=== PATIENT | female | born 1945 | race Caucasian/White ===

== ENCOUNTER → 2017-06-13 12:23 | Outpatient (CLI) | payer MEDICARE, SELFPAY ==
--- NOTE | 2017-06-13 12:26 | HPBI_ITS ---
MAMMOGRAPHY - BILATERAL SCREENING REASON FOR EXAM: Female, 71 years old. Routine annual screening examination. PERTINENT HISTORY: Non-contributory. Remote left stereotactic breast biopsy. TECHNIQUE: Digital bilateral breast lloyd (3D mammographic acquisition) in the CC and MLO projections. 2-D mediolateral oblique (MLO) and craniocaudad (CC) views of both breasts were obtained. CAD: Full Field Digital Mammography with Computer Added Detection was performed. COMPARISON: Comparison is made with prior study dated April 26, 2016 and April 07, 2015. FINDINGS: Breast Composition: There are scattered areas of fibroglandular density. There are no dominant masses or suspicious calcifications. 3 tissue markers are seen in the upper-outer aspect of the left breast. No other significant abnormalities are identified. There has been no significant change since the prior study. HPBI/SCREENING MAMM (CAD), BILAT IMPRESSION: Stable bilateral screening mammogram. Yearly follow-up mammogram recommended. (A) ASSESSMENT CATEGORY: BIRADS Category 2: Benign. A letter regarding these results will be sent to the patient by the facility within 30 days. Approximately 10% of breast cancers are not detected by mammography. A normal mammogram should not delay biopsy of a clinically suspicious abnormality. [id number] Electronically Signed: Kit Jones MD at 14:46 EDT Tel [phone], Service support ,
== END ==
PROVIDERS: Family Provider Internal Medicine; PCP Internal Medicine; Visit Provider Obstetrics & Gynecology
DX: Z12.31 Encounter for screening mammogram for malignant neoplasm of breast (principal)
CPT/HCPCS: 77063; 77067

== ENCOUNTER → 2018-06-20 08:13 | Outpatient (CLI) | payer MEDICARE, SELFPAY ==
--- NOTE | 2018-06-20 08:17 | US_ITS ---
STUDY: ABDOMINAL ULTRASOUND - RIGHT UPPER QUADRANT REASON FOR VISIT: Female, 72 years old. Right upper quadrant/epigastric pain. TECHNIQUE: Ultrasound evaluation of the right upper quadrant was performed with real-time and static gonzales-scale imaging. TECHNICAL QUALITY: Adequate. COMPARISON: None. FINDINGS: Liver: The liver measures 15.2 cm. There is normal echogenicity of the liver. The bile ducts are within normal limits. There is hepatic color flow. The direction of portal flow is hepatopetal. There is no demonstrated mass lesion. Gallbladder: Normal distended gallbladder. The gallbladder wall measures 3.2 mm. There is a negative sonographic Alaniz's sign. There is no pericholecystic fluid. There are multiple echogenic structures within the gallbladder, consistent with multiple gallstones. Common Bile Duct (C.B.D.): The common bile duct measures 2.7 mm. Pancreas: Normal size of the visualized head, body and tail of the pancreas. There is normal echogenicity of the pancreas. There is no demonstrated pancreatic mass or cyst. Right Kidney: Normal size of the right kidney. The right kidney measures 10.6 x 5 x 4.2 cm. Normal renal cortex. The right cortex measures 1.4 cm. A well-defined 1.6 x 1.6 x 1.5 cm anechoic cyst is seen at the upper pole. There is no right hydronephrosis. US/Abdomen Limited IMPRESSION: 1. Numerous gallstones. No sonographic sign of acute cholecystitis or bile duct obstruction. 2. 1.6 cm cortical cyst in the upper pole of the right kidney. No right hydronephrosis. 3. Unremarkable visualized liver and pancreas. Electronically Signed: Desmond Bearden MD at 15:44 EDT , Service support ,
== END ==
PROVIDERS: Family Provider Internal Medicine; PCP Internal Medicine; Referring Provider Internal Medicine; Visit Provider Internal Medicine
DX: R10.13 Epigastric pain (principal)
CPT/HCPCS: 76705

== ENCOUNTER → 2018-06-29 09:52 | Outpatient (CLI) | payer MEDICARE, SELFPAY ==
[2018-06-27 08:48] VITALS: BMI 26.2
--- NOTE | 2018-06-29 09:54 | BI_ITS ---
MAMMOGRAPHY - BILATERAL SCREENING REASON FOR EXAM: Female, 72 years old. Routine annual screening examination. PERTINENT HISTORY: Non-contributory. Prior left stereotactic breast biopsies. TECHNIQUE: Digital bilateral breast lloyd (3D mammographic acquisition) in the CC and MLO projections. 2-D mediolateral oblique (MLO) and craniocaudad (CC) views of both breasts were obtained. CAD: Full Field Digital Mammography with Computer Added Detection was performed. COMPARISON: Comparison is made with prior study dated June 13, 2017 and April 26, 2016. FINDINGS: Breast Composition: There are scattered areas of fibroglandular density. There are no dominant masses or suspicious calcifications. Once again, 3 tissue markers are seen in the upper outer aspect of the left breast and compared with prior biopsies. These are unchanged. Stable small benign-appearing bilateral axillary lymph nodes. No other significant abnormalities are identified. There has been no significant change since the prior study. BI/SCREENING MAMM (CAD), BILAT IMPRESSION: Stable bilateral screening mammogram. Yearly follow-up mammogram recommended. (A) ASSESSMENT CATEGORY: BIRADS Category 2: Benign. A letter regarding these results will be sent to the patient by the facility within 30 days. Approximately 10% of breast cancers are not detected by mammography. A normal mammogram should not delay biopsy of a clinically suspicious abnormality. [id number] Electronically Signed: Kit Jones, at 11:38 EDT , Service support ,
== END ==
PROVIDERS: Family Provider Internal Medicine; PCP Internal Medicine; Referring Provider Obstetrics & Gynecology; Visit Provider Obstetrics & Gynecology
DX: Z12.31 Encounter for screening mammogram for malignant neoplasm of breast (principal)
CPT/HCPCS: 77063; 77067

== ENCOUNTER 2020-02-14 05:23 | Day surgery (SDC) | payer MEDICARE, SELFPAY ==
--- NOTE | 2020-02-13 10:25 | EKG12_ITS ---
Test Reason : PRE OP Blood Pressure : / mmHG Vent. Rate : 067 BPM Atrial Rate : 067 BPM P-R Int : 182 ms QRS Dur : 078 ms QT Int : 352 ms P-R-T Axes : 073 067 063 degrees QTc Int : 371 ms Normal sinus rhythm with sinus arrhythmia Normal ECG Confirmed by SHAHANA BARDALES, CARLOS ([id number]), newspaper photo editor CURLY SKY ([id number]) on 02/14/2020 12:53:19 PM Referred By: Jaylan Copeland Confirmed By:CARLOS HARKINS MD
[2020-02-14 05:48] VITALS: BP 126/74; PULSE 70; RESP 14; TEMP 36.6; O2SAT 100; BMI 26.3
--- NOTE | 2020-02-14 06:00 | HP_ITS ---
Intake Vital Signs 01/31/20 Height 5 ft 01/31/20 Weight: 33 lb 4 oz 01/31/20 BMI 6.5 01/31/20 BP 133/4 H 01/31/20 Blood Pressure Location Rt brachial 01/31/20 Position Sitting 01/31/20 Respiration 20 H 01/31/20 Pulse 86 01/31/20 Pulse Source NIBP 01/31/20 Temp 98.0 F 01/31/20 Temp Source Temporal 01/31/20 Pulse Oximetry (%) 97 01/31/20 Oxygen Delivery Method room air Intake Visit Reasons: Discuss Gall Bladder Surgery Chief Complaint: discuss ivelisse Tile Edger Required: No Is patient in pain?: No Allergies No Known Allergies Allergy (Verified 01/31/20 14:16) Medications Calcium Carbonate/Vitamin D3 [Calcium 500 + D Tablet] 1 ea PO DAILY 01/02/14 [History Confirmed 01/31/20] Multivitamins,Therapeutic [Multivitamin] 1 tab PO DAILY 01/02/14 [History Confirmed 01/31/20] Pyridoxine HCl [Vitamin B6] 25 mg PO DAILY 01/02/14 [History Confirmed 01/31/20] fexofenadine 180 mg tablet 180 mg PO DAILY 06/27/18 [History Confirmed 01/31/20] lansoprazole 30 mg capsule,delayed release ea PO 01/31/20 [History Confirmed 01/31/20] mometasone 50 mcg/actuation nasal spray g INTRANASAL 01/31/20 [History Confirmed 01/31/20] Is last menstrual period known: No Post menopausal: Yes Patient : No PFSH Medical History Cholelithiasis (Acute) GERD (gastroesophageal reflux disease) (Acute) Surgical History History of dilatation and curettage (Acute) Family History Mother Heart disease Brother High cholesterol Social History (Updated 02/01/20 @ 10:[address] Jaylan Copeland MD) Smoking Status: Never smoker alcohol intake: current alcohol intake frequency: a few times a month substance use type: does not use HPI HPI Surgical H&P: Yes HPI: CHRIS DE LEON, is a 74 F who presents to the office today for Evaluation of cholelithiasis. Patient has had a gallbladder ultrasound completed at [facility] on 06/20/2018. The impression showed that there were numerous gallstones with no sonographic sign of acute cholecystitis or bile duct obstruction. Her common bile duct was 2.7 mm in size. Over the last 4 years off and on particularly when she has been eating heavier meals she has noticed some discomfort in the epigastric area that goes into her back. She cannot recall ever having an acute attack which required hospitalization but there have been numerous times during the holidays when she has had increased pressure and increased back pain. She is not experiencing any nausea or vomiting. She has had no change in her bowel or bladder habits. The patient is concerned that she could develop pancreatitis given the numerous gallstones that are located within her gallbladder. With been well over a year since I last saw her. She has noticed that her symptoms are starting to increase. She is delayed treatment secondary to the Kovic crisis but now feels that something needs to be done. ROS General General: No weight change, appetite, fatigue, colon cancer, breast cancer or weakness HEENT HEENT: No difficulty swallowing, eye injury, eye surgery, swollen glands or hoarseness Endo Endocrine: No thyroid disease, diabetes mellitus, thyroid cancer, Hair loss, heat intolerance or cold intolerance Skin Skin: No rash or changing moles Breast Breast: No left breast lump, right breast lump, nipple discharge, breast pain, abnormal mammogram, abnormal US or breast enlargement Musc Musculoskeletal: No back problems, arthritis, rheumatoid arthritis, gout or joint pain Cardio Cardiovascular: No murmur, pacemaker, heart disease, atrial fibrillation, high blood pressure, heart attack, heart stent, palpitations, shortness of breat with exertion or chest pain Psych Psychiatric: No depression, anxiety or hearing voices Resp Respiratory: No shortness of breath, No sleep apnea, No cough, No COPD, No asthma, No emphysema, No wheezing Gastro Gastrointestinal: Yes abdominal pain, No nausea or vomiting, No diarrhea, No constipation, No blood in stool, No acid reflux, Yes hemorrhoids, No ulcers, Yes gallbladder problem, No black,tarry stools Brayan Hematologic: No blood thinners, No blood disorders, No bleeding, No anemia, No blood clots Neuro Neurologic: No system reviewed and no additional complaints, except as docu, No as per HPI, No abnormal walking, No abnormal hearing, No abnormal movements, No abnormal speech, No behavioral changes, No burning sensations, No confusion, No seizure-like activity, No unsteadiness, No dizziness, No localized weakness, No frequent falls, No headache(s), No lack of coordination, No loss of vision, No memory loss, No numbness, No other visual disturbances, No radiating pain, No restless legs, No sensory deficit, No fainting, No tingling, No tremor(s), No weakness, No other Exam Const General: no acute distress, well developed, well hydrated Orientation: oriented to person, oriented to place, oriented to time [facility] Head: normocephalic, atraumatic Ears: external ears normal Mouth: moist mucous membranes Eyes Sclera: sclerae normal Pupils: normal by confrontation Neck Neck: no lymphadenopathy noted Neck mass: No Thyroid: thyroid normal, symmetrical Chest Chest palpation & inspection: normal inspection of the chest Breast Palpation: No nipple discharge Resp Effort & Inspection: normal respiratory effort Auscultation: clear to auscultation bilaterally Percussion: percussion normal Cardio Rate: regular rate Rhythm: regular rhythm Heart Sounds: no murmurs GI Palpation: soft, no hepatosplenomegaly, no masses, tender Auscultation: normal bowel sounds Rectal Exam: other Other: Rectal exam deferred. Extrem General: normal to inspection, no clubbing, cyanosis or edema Assessment & Plan Problems 1. Calculus of gallbladder with chronic cholecystitis without obstruction K80.10 2. Epigastric abdominal pain R10.13 Plan My plan is to perform a Robot assisted laparoscopic cholecystectomy with intraoperative cholangiogram. The planned surgical procedure was discussed extensively with the patient. The risks, benefits, anticipated outcomes and possible complication were mentioned. My staff has also explained the procedure in understandable terms and the patient was given the option to take printed material concerning the planned procedure. The patient had the opportunity to ask questions concerning the planned procedure. The patient freely consents to the planned procedure. Coding Level of Care Code Off vis,est,level 3 Diagnoses Calculus of gallbladder with chronic cholecystitis without obstruction K80.10 ??Cholelithiasis location: gallbladder ??Cholecystitis acuity: chronic Epigastric abdominal pain R10.13 COVID (Procedure Consent) Procedure Criteria Procedure Criteria: Yes Elective The surgeon/proceduralist and patient have discussed in detail the risk of exposure to and/or potential harm posed by the COVID-19 virus with having a surgery/procedure at this time versus the risk of? delaying the surgery/procedure. It is not possible to know either the risk of delaying the surgery or procedure or chance of getting an infection with perfect accuracy, but a joint decision was made between the patient and the surgeon/proceduralist ?to proceed at this time with the scheduled surgery/procedure as indicated on the consent form. I have re-examined the patient. There are no clinical changes since date of exam.
[2020-02-14] MEDS: Lactated Ringers 1,000 ML 100 ML IV (06:05)
[2020-02-14] MEDS: Cefazolin 2 GM in 0.9% Normal Saline 100 ML IV (07:28)
--- NOTE | 2020-02-14 07:30 | GALL_PTH ---
PATIENT: ERVIN DE LEON LOC: [facility] [place] U#:[id number] AGE/SX: 74/F ROOM: RE02/14/[address]: Dr. Jaylan Copeland MD : [id number] BED: DIS: 02/14/2020 SPEC #: [id number] RECD: 02/14/20 09:47 STATUS: NANETTE REQ #: [id number] FARZANA: 02/14/20 07:[address]: Jaylan Copeland DEPT: SURGICAL PATHOLOGY RECD BY: Juice Escobar ENTERED: 02/14/20 10:36 SP TYPE: ALYSON BUSTAMANTE DR: Dr. Irlanda Ho DO Tissues: Gallbladder, NOS Procedures: Surgery Specimen Level III HEADER OPERATION: Robotic cholecystectomy PRE-OP DIAGNOSIS: Calculus of gallbladder with chronic cholecystitis TISSUE SUBMITTED: Gallbladder MICROSCOPIC DIAGNOSIS Gallbladder, cholecystectomy: Chronic cholecystitis, cholelithiasis and focal cholesterolosis. SJ:[place] 02/15/20 MICROSCOPIC DESCRIPTION Slides are reviewed. GROSS DESCRIPTION Received is one container labeled with the patient's name and designated gallbladder. The specimen consists of a gallbladder measuring 7 cm in length and up to 3.5 cm in diameter. The external surface is pink-gonzalez, smooth and glistening for the most part. Focally it is granular, hemorrhagic and contains cautery artifact. A focal area of defect is noted in the gallbladder. The gallbladder contains green-yellow bile and also in the container are multiple irregular black stones measuring in aggregate 2.5 x 2.5 x 0.6 cm and 0.1 to 0.5 cm in greatest dimension. The mucosa is bile-stained and without any mass lesions. The gallbladder wall measures up to 0.2 cm in thickness. Temporary Office Assistant sections from the gallbladder and the cystic duct are submitted in one cassette. / BRIONNA:myrna 02/14/20 TC:3 CPT: 05766
[2020-02-14] MEDS: Bupivacaine Mpf 0.5% 30 ML VIAL (08:45)
[2020-02-14 09:03] VITALS: BP 118/65; BP 126/74; PULSE 60; RESP 16; TEMP 36.6; O2SAT 100
[2020-02-14 09:15] VITALS: BP 117/64; BP 126/74; PULSE 54; RESP 16; O2SAT 100
--- NOTE | 2020-02-14 09:21 | PCM.DC.GB ---
Discharge Diet: Light diet - advance as tolerated Discharge Activity: May Not Drive - for 2-3 days or while taking narcotic pain medications., - - Do not drive, work heavy equipment or sign legal documents for 24 hours. May shower in (days): 1 - with the bandage in place. Additional Activity Instructions:: Pain medication may cause nausea. You should typically eat light foods as you take your pain medications. Pain medication may also cause constipation. If this is a problem for you, please discuss with your doctor. Call your doctor if your incision/area has: Continuous Slow Oozing, Sudden Increased Bleeding, Increased Pain/ Swelling, Increased Redness, Foul Smelling Discharge Call your doctor if you observe: Fever of 101 or Higher Suture Line Care: Avoid Pulling/Pushing, Avoid Pinching/Bending Additional Dressing/Incision Instructions:: Leave operative bandaids on for 2 days. When you remove dressing, leave Steri-Strips on until your follow-up appointment, or until the Steri-Strips fall off on their own. Allergies/Adverse Reactions: Allergies No Known Allergies Allergy (Verified 02/07/20 14:53) Medications to take at Discharge Calcium Carbonate/Vitamin D3 [Calcium 500 + D Tablet] 1 ea PO DAILY 01/02/14 Multivitamins,Therapeutic [Multivitamin] 1 tab PO DAILY 01/02/14 fexofenadine 180 mg tablet 180 mg PO DAILY 06/27/18 Remifemin 1 tab PO DAILY 02/07/20 Oxycodone HCl/Acetaminophen [Percocet 5/325] 1 - 2 tab PO Q4H PRN PRN 6 Days #30 tab 02/14/20 The following prescriptions were given: Oxycodone HCl/Acetaminophen [Percocet 5/325] 1 - 2 tab PO Q4H PRN PRN 6 Days #30 tab PRN Reason: Pain Transmission Status: Pending to [facility] Primary Care Physician: Irlanda Ho DO [Primary Care Provider] - Test Results: Test results from this visit will be discussed in further detail at your follow-up appointment, if applicable. Please Follow Up With: Jaylan Copeland MD - Please call [phone] to schedule an appointment. When: 7 days after your surgery.
[2020-02-14 09:31] VITALS: BP 114/71; BP 126/74; PULSE 52; O2SAT 100
[2020-02-14 09:32] VITALS: BP 126/65; BP 126/74; PULSE 50; RESP 16; TEMP 36.1; O2SAT 100
[2020-02-14 10:52] VITALS: BP 126/74; BP 133/55; PULSE 55; RESP 18; TEMP 36.3; O2SAT 97
--- NOTE | 2020-02-14 13:06 | PCM.OPRPT ---
Problem List (1) Calculus of gallbladder Status: Acute Qualifiers: Cholecystitis presence: with cholecystitis Cholecystitis acuity: acute and chronic Biliary obstruction: without biliary obstruction Qualified Code(s): K80.12 - Calculus of gallbladder with acute and chronic cholecystitis without obstruction (2) Epigastric abdominal pain Status: Acute Report of Operation Date of Procedure: 02/14/20 Pre-Operative Diagnosis: Calculus of the gallbladder. Epigastric pain Post-Operative Diagnosis: Same Surgery/Procedure Performed:: Robotically assisted laparoscopic cholecystectomy Type of Anesthesia:: General Anesthesiologist: Brendan Taylor Estimated Blood Loss (mL): < 25 cc Description of Procedure: Patient was brought in the operating room. Placed in the supine position. Under excellent general trach intubation the abdomen was sterilely prepped draped in usual fashion local was injected above the umbilicus. Dissection was carried down to the fascia. The fascia is grasped with Eduardo. Varies needle was placed inside the abdomen. Abdomen was insufflated to 15 torr. A #8 trocar was placed without difficulty. It was flank by 2 other #8 trochars placed under direct visualization. In the left upper quadrant another #5 trocar was placed under direct visualization. Robot was docked after the patient had been placed in the head up and rotated to the left position. Patient had significant amount of adhesions on the gallbladder itself I took these down with electrocautery. Through the #5 trocar grasper was placed on the fundus and then the fundus was retracted in a cephalad direction. I dissected further adhesions off of the gallbladder. I came down to the cystic duct and I was able to dissect the cystic duct and the cystic artery and posterior to the liver all free anatomy was very clear and I had very little blood loss. I placed hemoclips proximally and distally on the duct. I ligated the duct. Placed proximal and distal ducts on the artery and ligated the artery. Deliver the gallbladder from the gallbladder bed with use of electrocautery. I had excellent hemostasis. I open the gallbladder sucked all the bile out of it. I then placed it in a specimen bag and it was delivered through the #8 trocar without difficulty. Abdomen was reinflated I inspected the liver bed I used some electrocautery for good in the stasis I irrigated out the area good hemostasis was noted. Trochars were removed under direct visualization good mistakes was noted. Skin incisions were closed with subcuticular stitches of 4-0 Monocryl. Steri-Strips were applied. Sterile dressings were applied. The patient tolerated the procedure well. - Admit VTE Documentation VTE Present on Admission: No VTE Mechan Device Prophylaxis: SCD's VTE Pharm Prophylaxis ordered?: No Reason prophylaxis not ordered:: Treatment Not Indicated [id number]: [id number] Laparoscopic cholecystectomy
== END 2020-02-14 11:00 | disposition home or self-care (01) ==
LOC: SDC 05:24 → AC 05:24
PROVIDERS: PCP Internal Medicine; Referring Provider Surgery; Visit Provider Surgery
PROC: 0FT44ZZ Resection of Gallbladder, Percutaneous Endoscopic Approach (ICD-10-PCS; CPT 47562; principal; 2020-02-14 07:10)
DX: K80.10 Calculus of gallbladder with chronic cholecystitis without obstruction (principal); Z20.828 Contact with and (suspected) exposure to other viral communicable diseases; K21.9 Gastro-esophageal reflux disease without esophagitis; Z79.899 Other long term (current) drug therapy
CPT/HCPCS: 00790; 47562; S2900; 87426; 88304; 93005; C9803; J7120; J2405

== ENCOUNTER 2021-05-05 13:44 | Outpatient (CLI) | payer MEDICARE, SELFPAY ==
--- NOTE | 2021-05-05 14:04 | BI_ITS ---
MAMMOGRAPHY - BILATERAL SCREENING REASON FOR EXAM: Female, 75 years old. Routine annual screening examination. PERTINENT HISTORY: Non-contributory. Remote left stereotactic breast biopsies. TECHNIQUE: Digital bilateral breast gloria (3D mammographic acquisition) in the CC and MLO projections. 2-D mediolateral oblique (MLO) and craniocaudad (CC) views of both breasts were obtained. CAD: Full Field Digital Mammography with Computer Added Detection was performed. COMPARISON: Comparison is made with prior study 06/29/2018 and 06/13/2017. FINDINGS: Breast Composition: There are scattered areas of fibroglandular density. There are no dominant masses or suspicious calcifications. Once again, the tissue markers are seen in the upper outer quadrant of the left breast in keeping with prior biopsies. Small benign appearing bilateral axillary lymph nodes. No other significant abnormalities are identified. There has been no significant change since the prior study. BI/SCRN MAMM (CAD)W/GLORIA BILAT IMPRESSION: Stable bilateral screening mammogram. Yearly follow-up mammogram recommended. (A) ASSESSMENT CATEGORY: BIRADS Category 2: Benign. A letter regarding these results will be sent to the patient by the facility within 30 days. Approximately 10% of breast cancers are not detected by mammography. A normal mammogram should not delay biopsy of a clinically suspicious abnormality. [id number] Electronically Signed: Kit Jones MD at 14:58 EST ,
== END 2021-05-05 23:59 | disposition short-term general hospital (02) ==
PROVIDERS: PCP Internal Medicine; Visit Provider Obstetrics & Gynecology
DX: Z12.31 Encounter for screening mammogram for malignant neoplasm of breast (principal)
CPT/HCPCS: 77063; 77067

== ENCOUNTER 2021-05-14 09:32 | Outpatient (CLI) | payer MEDICARE, SELFPAY ==
--- NOTE | 2021-05-14 09:35 | BD_ITS ---
STUDY: DUAL ENERGY X-RAY ABSORPTIOMETRY / DXA REASON FOR EXAM: Female, 75 years old. M85.89. The patient is postmenopausal. TECHNIQUE: Bone Mineral Density (BMD) measurements of lumbar spine and bilateral hips were obtained. COMPARISON: Comparison is made with prior study dated 02/18/2011. FINDINGS: Lumbar Spine (L1-L4): g/cm2 (0.778) / T-score (-2.4) / Z-score (0.0) Findings are suggestive of osteopenia with a high fracture risk. Left Femur Total: g/cm2 (0.765) / T-score (-1.4) / Z-score (0.4) Left Femoral Neck: g/cm2 (0.590) / T-score (-2.3) / Z-score (-0.2) Right Femur Total: g/cm2 (0.787) / T-score (-1.3) / Z-score (0.6) Right Femoral Neck: g/cm2 (0.63 to) / T-score (-2.0) / Z-score (0.2) The T-Scores on the most recent prior examination were: Lumbar Spine (L1-L4): There has been worsening of bone density since the previous examination. Left Femur Total: which represents a worsening of 7.3%. Right Femur Total: which represents a worsening of 6.5%. BD/Dexa Bone Density Study IMPRESSION: The patient is considered osteopenic as outlined below according to World Rai Organization (WHO) criteria with a high fracture risk. There has been worsening of bone density since the previous examination. Reference Information: The T-score is the number of standard deviations above or below the standard which is normal for young adults at their peak bone mineral density. The World Health Organization (WHO) interprets the T-scores as follows: Above -1 Normal bone density Between -1 and -2.5 Osteopenia Equal to / or below -2.5 Osteoporosis As a practical clinical guideline, osteopenia may be graded as follows: Mild -1 through -1.5 Moderate -1.6 through -2.0 Severe -2.1 through -2.4 The Z-score is the number of standard deviations above or below age-matched controls. A Z-score of less than -1.5 would be considered abnormal. References: 1. NIH Osteoporosis and Related Bone Diseases www osteo.org 2. International Society for Clinical Densitometry www iscd.org 3. National Osteoporosis Foundation www nof.org Electronically Signed: Kit Jones MD at 18:39 EST ,
== END 2021-05-14 23:59 | disposition home or self-care (01) ==
LOC: OPBD 09:32
PROVIDERS: PCP Internal Medicine; Visit Provider Obstetrics & Gynecology
DX: M85.89 Other specified disorders of bone density and structure, multiple sites (principal)
CPT/HCPCS: 77080

== ENCOUNTER → 2022-08-31 | Outpatient (CLI) | payer MEDICARE, SELFPAY ==
--- NOTE | 2022-08-31 07:25 | BI_ITS ---
MAMMOGRAPHY - BILATERAL SCREENING REASON FOR EXAM: Female, 76 years old. Routine annual screening examination. PERTINENT HISTORY: Non-contributory. Remote left stereotactic breast biopsies. TECHNIQUE: Digital bilateral breast gloria (3D mammographic acquisition) in the CC and MLO projections. 2-D mediolateral oblique (MLO) and craniocaudad (CC) views of both breasts were obtained. CAD: Full Field Digital Mammography with Computer Added Detection was performed. COMPARISON: Comparison is made with prior study dated May 05, 2021 and June 29, 2018. FINDINGS: Breast Composition: There are scattered areas of fibroglandular density. There are no dominant masses or suspicious calcifications. Once again, 3 adjacent the stereotactic tissue clip marker seen in the deep upper lateral aspect of the left breast. Stable appearance of the benign appearing bilateral axillary lymph nodes. No other significant abnormalities are identified. There has been no significant change since the prior study. BI/SCRN MAMM (CAD)W/GLORIA BILAT IMPRESSION: Stable bilateral screening mammogram. Yearly follow-up mammogram recommended. (A) ASSESSMENT CATEGORY: BIRADS Category 2: Benign. A letter regarding these results will be sent to the patient by the facility within 30 days. Approximately 10% of breast cancers are not detected by mammography. A normal mammogram should not delay biopsy of a clinically suspicious abnormality. [id number] Electronically Signed: Kit Jones MD at 10:03 EDT ,
== END | disposition home or self-care (01) ==
LOC: OPBI 07:24
PROVIDERS: PCP Internal Medicine; Referring Provider Internal Medicine; Visit Provider Internal Medicine
DX: Z12.31 Encounter for screening mammogram for malignant neoplasm of breast (principal)
CPT/HCPCS: 77063; 77067

== ENCOUNTER → 2023-10-27 | Outpatient (CLI) | payer MEDICARE, SELFPAY ==
--- NOTE | 2023-10-27 10:05 | BI_ITS ---
MAMMOGRAPHY - BILATERAL SCREENING REASON FOR EXAM: Female, 77 years old. Routine annual screening examination. PERTINENT HISTORY: Non-contributory. History of 2 left stereotactic breast biopsies. TECHNIQUE: Digital bilateral breast gloria (3D mammographic acquisition) in the CC and MLO projections. 2-D mediolateral oblique (MLO) and craniocaudad (CC) views of both breasts were obtained. CAD: Full Field Digital Mammography with Computer Added Detection was performed. COMPARISON: Comparison is made with prior study dated August 31, 2022 and May 05, 2021. FINDINGS: Breast Composition: There are scattered areas of fibroglandular density. There are no dominant masses or suspicious calcifications. Once again, 3 tissue clip marker from prior stereotactic breast biopsies are seen in the deep upper lateral aspect of the left breast. Stable fat-containing bilateral axillary lymph nodes. No other significant abnormalities are identified. There has been no significant change since the prior study. BI/SCRN MAMM (CAD)W/GLORIA BILAT IMPRESSION: Stable bilateral screening mammogram. Yearly follow-up mammogram recommended. (A) ASSESSMENT CATEGORY: BIRADS Category 2: Benign. A letter regarding these results will be sent to the patient by the facility within 30 days. Approximately 10% of breast cancers are not detected by mammography. A normal mammogram should not delay biopsy of a clinically suspicious abnormality. [id number] Electronically Signed: Kit Jones MD at 11:12 EDT ,
== END | disposition home or self-care (01) ==
LOC: OPBI 10:05
PROVIDERS: PCP Internal Medicine; Referring Provider Internal Medicine; Visit Provider Internal Medicine
DX: Z12.31 Encounter for screening mammogram for malignant neoplasm of breast (principal)
CPT/HCPCS: 77063; 77067

== ENCOUNTER → 2024-12-19 | Outpatient (CLI) | payer MEDICARE, SELFPAY ==
--- NOTE | 2024-12-19 11:57 | BI_ITS ---
EXAM: SCRN MAMM (CAD)W/GLORIA BILAT DATE: 12/19/2024 CLINICAL HISTORY: F, Age 79 y/o , SCREENING History of prior left stereotactic breast biopsies. No family history. TECHNIQUE: Procedure Code: [id number] Modality: MG Procedure: SCRN MAMM (CAD)W/GLORIA BILAT COMPARISON: Prior exam(s) dated October 27, 2023.. FINDINGS: TISSUE DENSITY: There are scattered areas of fibroglandular density. Bilateral Breast Mammographic Findings: No significant masses, calcifications or other abnormalities are identified. Once again, there are 3, tissue clip marker seen in the upper-outer quadrant of the left breast. Stable fat containing bilateral axillary lymph nodes. No suspicious masses, areas of developing architectural distortion, or suspicious calcifications. There has been no significant interval change. BI/SCRN MAMM (CAD)W/GLORIA BILAT IMPRESSION: Stable bilateral screening mammogram. OVERALL FINAL ASSESSMENT BI-RADS 2: BENIGN RECOMMENDATION: Routine annual follow-up in 1 Year A letter with findings and recommendations will be mailed to the patient. Reading Location: [place] [id number]
== END | disposition home or self-care (01) ==
LOC: OPBI 11:54
PROVIDERS: PCP Internal Medicine; Referring Provider Internal Medicine; Visit Provider Internal Medicine
DX: Z12.31 Encounter for screening mammogram for malignant neoplasm of breast (principal)
CPT/HCPCS: 77063; 77067